=== PATIENT | female | born 1995 | race American Indian/Alaskan Native ===

== ENCOUNTER 2024-03-06 04:08 | Inpatient (IN) | payer BC, SELFPAY ==
[2024-03-06 04:44] VITALS: BP 111/76; BMI 37.1
[2024-03-06] MEDS: LR 1000 IV (08:58)
[2024-03-06 09:09] LABS: % Basophils 0.3 % (0-2); % Eosinophils 1.2 % (0-6); % Immature Granulocytes 0.3 % (0-0.5); % Lymphocytes 14.1 % (20.5-51.1); % Monocytes 6.4 % (1.7-9.3); % Neutrophils 77.7 % (42.2-75.2); Absolute Eosinophils 0.1 10^3/uL (0-0.7); Absolute Lymphocytes 1.7 10^3/uL (1.2-3.4); Absolute Monocytes 0.8 10^3/uL (0.1-0.6); Absolute Neutrophils 9.2 10^3/uL (1.4-6.5); Hematocrit 38.8 % (37.0-47.0); Hemoglobin 12.9 g/dL (12.0-16.0); Mean Corp Hgb Conc. 33.2 g/dL (33.0-37.0); Mean Corpuscular Hgb 27.6 pg (27.0-31.0); Mean Corpuscular Volume 82.9 fL (81.0-99.0); Nucleated Red Blood Cells % 0 %; Platelet Count 263 10^3/uL (130-400); Red Blood Cell Count 4.68 10^6/uL (4.20-5.40); Red Cell Dist. Width 14.9 % (11.5-14.5); White Blood Cell Count 11.8 10^3/uL (4.8-10.8)
[2024-03-06] MEDS: CYTOTEC 50 MICROGRAM PO ×2 (16:29→21:13)
[2024-03-06] MEDS: PHENERGAN 50.5 MG IV (21:12)
[2024-03-06] MEDS: MORPHINE SULFATE 2 MG IV (21:12)
[2024-03-07] MEDS: SUBLIMAZE 100 MCG EPIDURAL (01:44)
[2024-03-07] MEDS: FENTANYL/BUPIVACAINE 100 EPIDURAL (01:44)
[2024-03-07] MEDS: LR 1000 IV (03:00)
[2024-03-07] MEDS: PITOCIN 30 UNITS/NSS 500 ML IV (03:00)
[2024-03-07] MEDS: BICITRA 30 ML PO (12:38)
[2024-03-07] MEDS: ANCEF 10 IV (12:39)
[2024-03-07] MEDS: ZITHROMAX INFUSION 250 IV (12:40)
[2024-03-07] MEDS: TYLENOL 1000 MG PO (12:40)
[2024-03-07 13:57] LABS: Cord ABG Comment CORD BLOOD
[2024-03-07 13:59] LABS: Cord ABG Comment CORD BLOOD
[2024-03-07 14:01] LABS: B.E. Cord ABG -0.3 mMOL/L; HCO3 Cord ABG 28.2 mmol/L; O2 Saturation % Cord ABG 18.3 %; PCO2 Cord ABG 60 mmHg; PO2 Cord ABG 12 mmHg; pH Cord ABG 7.28
[2024-03-07 14:05] LABS: B.E. Cord ABG -0.3 mMOL/L; HCO3 Cord ABG 25.4 mmol/L; O2 Saturation % Cord ABG 23.1 %; PCO2 Cord ABG 44 mmHg; PO2 Cord ABG 15 mmHg; pH Cord ABG 7.37
[2024-03-07] MEDS: TORADOL 15 MG IV ×2 (15:10→21:05)
[2024-03-07] MEDS: TYLENOL 650 MG PO (18:22)
[2024-03-08] MEDS: PERCOCET 5/325 1 TABLET PO ×4 (00:05→23:05)
[2024-03-08] MEDS: TORADOL 15 MG IV ×2 (02:23→09:34)
[2024-03-08 02:37] LABS: Hemoglobin 10.5 g/dL (12.0-16.0); Mean Corp Hgb Conc. 32.8 g/dL (33.0-37.0); Mean Corpuscular Hgb 28.2 pg (27.0-31.0); Mean Corpuscular Volume 85.8 fL (81.0-99.0); Mean Platelet Volume 9.9 fL (7.4-10.4); Platelet Count 200 10^3/uL (130-400); Red Blood Cell Count 3.73 10^6/uL (4.20-5.40); White Blood Cell Count 15.9 10^3/uL (4.8-10.8)
--- NOTE | 2024-03-08 07:54 | W.PN.ANS.POP ---
Anesthesia Post Operative
- Anesthesia Post Op Note
Vital Signs Stable-See Nursing Note: Yes
Airway Patent: Yes
Adequate Pain Control: Yes
Change in Mental Status: No
Current Postoperative Nausea & Vomiting: No
Anesthesia Complications: No
General Anesthetic Recall: No
Unplanned Admission: No
Post Op Hydration Adequate: Yes
[2024-03-08] MEDS: PRENATAL PLUS 1 TABLET PO (09:37)
[2024-03-08] MEDS: MYLICON 80 MG PO ×3 (09:37→17:35)
[2024-03-08] MEDS: TYLENOL 650 MG PO ×2 (14:15→18:40)
[2024-03-08 14:53] LABS: Syphilis/T. pallidum Ab Reflex Negative (Negative)
[2024-03-08] MEDS: MOTRIN 600 MG PO ×2 (15:06→22:56)
--- NOTE | 2024-03-09 04:46 | DOWNTIME ---
There was a [employer] Downtime on 03/09/2024 from 0100 to 03/09/2024 at 0439. Downtime documentation of patient's care, including medication administrations, has been reconciled in the electronic record per guidelines. Refer to the
patient's paper chart under the miscellaneous tab to see printed paper medication records and downtime forms.
[2024-03-09] MEDS: MOTRIN 600 MG PO (05:04)
[2024-03-09] MEDS: TYLENOL 650 MG PO (05:04)
[2024-03-09] MEDS: SENOKOT-S 1 TABLET PO (09:00)
[2024-03-09] MEDS: PRENATAL PLUS 1 TABLET PO (09:00)
--- NOTE | 2024-03-09 10:48 | W.DS.TRANS ---
DC Summary - Product Analyst
-
Discharge Instructions:
Discharge Diagnosis/Procedures term , delivered; s/p PLTCS; suspected
intraamniotic infection, delivered
Instructions:
Stand-Alone Forms: LDRP Delivery
Changes to Home Medications: No
Discharge Medications:
DC Medications w/original date entered in [employer]
1 tab PO DAILY 03/06/24
acetaminophen 325 mg tablet 650 mg (2 x 325 mg) PO Q4HPRN PRN mild pain #0 tabs 03/09/24
ibuprofen 600 mg tablet 600 mg PO Q6HPRN PRN cramps/ pain #30 tabs 03/09/24
oxycodone 5 mg capsule 5 mg PO Q6H PRN pain not relieved with motrin and tylenol #5 caps 03/09/24
sennosides 8.6 mg-docusate sodium 50 mg tablet (Stool Softener-Stimulant Laxative) 1 tab PO DAILYPRN PRN constipation #0 tabs 03/09/24
Home Medication Changes
Pending Results: No
Total time spent discharging patient (in min): 30
== END 2024-03-09 14:45 | disposition home or self-care (01) | DRG 786 ==
LOC: LDRP 04:08
PROVIDERS: Obstetrics & Gynecology; ADMITTING PHYSICIAN Obstetrics & Gynecology; FAMILY PHYSICIAN Family Medicine
PROC: 3E0P7VZ Introduction of Hormone into Female Reproductive, Via Natural or Artificial Opening (ICD-10-PCS; 2024-03-07)
PROC: 10D00Z1 Extraction of Products of Conception, Low, Open Approach (ICD-10-PCS; 2024-03-07)
PROC: 3E033VJ Introduction of Other Hormone into Peripheral Vein, Percutaneous Approach (ICD-10-PCS; 2024-03-07)
DX: O42.02 Full-term premature rupture of membranes, onset of labor within 24 hours of rupture (principal); O41.1230 Chorioamnionitis, third trimester, not applicable or unspecified; O76 Abnormality in fetal heart rate and rhythm complicating labor and delivery; O77.0 Labor and delivery complicated by meconium in amniotic fluid; Z3A.39 39 weeks gestation of pregnancy; Z37.0 Single live birth
CPT/HCPCS: 88307; 36415; 82803; 85025; 85027; 86780; 86850; 86900; 86901; 87070; 87077; 87205